=== PATIENT | male | born 1990 | race Two or more races ===

== ENCOUNTER 2020-04-02 11:26 | Emergency (ER) | payer OTHER ==
[~2020-04-02] VITALS: Ht 175.3 cm; Wt 85.3 kg
[2020-04-02] MEDS ORDERED: LIDOCAINE 1% SDV 5ML VIAL DILUENT ONE (12:15)
[2020-04-02] MEDS ORDERED: AZITHROMYCIN 250MG TABLET PO ONE (12:15)
[2020-04-02] MEDS ORDERED: cefTRIAXone SOD 250MG VIAL (J0696 PER 250MG) IM ONE (12:15)
--- NOTE | 2020-04-02 12:43 | REP ---
INDICATION: L proximal scrotal tenderness. COMPARISON: None. TECHNIQUE: Real-time sonographic evaluation of scrotum and contents performed. FINDINGS: Right testicle measures 4.4 x 1.9 x 2.3 cm and left testicle 4.2 x 2.1 x 2.7 cm. There is no testicular mass bilaterally. Few tiny calcifications are scattered throughout both testicles. Blood flow is seen in each testicle duplex Doppler evaluation common no torsion. No significant hydrocele is seen. IMPRESSION: No testicular mass or torsion. Few tiny calcifications are scattered throughout both testicles. <Electronically signed by Mayur Wilkinson > 04/02/20 [id number]
[2020-04-02 13:23] VITALS: BP 159/52
[2020-04-02 13:49] LABS: CHLAMYDIA DNA AMPLIFICATION NEGATIVE (NEGATIVE); GC DNA AMPLIFICATION NEGATIVE (NEGATIVE)
[2020-04-02 14:55] LABS: HEPATITIS B SURFACE ANTIBODY POSITIVE (POSITIVE); HEPATITIS B SURFACE ANTIGEN NEGATIVE (NEGATIVE); HEPATITIS C VIRUS ABY INDEX 0.1 INDEX (<0.8)
== END 2020-04-02 13:25 | disposition home or self-care (01) ==
LOC: M ED 11:26
DX: R36.9 Urethral discharge, unspecified (principal); N49.2 Inflammatory disorders of scrotum; F17.200 Nicotine dependence, unspecified, uncomplicated; F10.10 Alcohol abuse, uncomplicated
CPT/HCPCS: 76870; 81001; 86706; 86780; 86803; 87340; 87661; 93976; 96372; 99283; J0696